=== PATIENT | female | born 1980 | race Caucasian/White ===

== ENCOUNTER 2018-02-27 18:01 | Emergency (ER) | payer BC ==
[~2018-02-27 18:01] MED LIST: IBUPROFEN 600600 M1 PO; NORCO 5-325 TA1 EACH PO
[2018-02-27] MEDS ORDERED: NORCO 5-325 TA1 EACH PO (19:04)
[2018-02-27] MEDS ORDERED: ZOFRAN ODT4 MG PO (19:15)
[2018-02-27 19:38] VITALS: BP 0/0
== END 2018-02-27 19:39 | disposition home or self-care (01) ==
LOC: ER 18:01
DX: S92.351A Displaced fracture of fifth metatarsal bone, right foot, initial encounter for closed fracture (principal); W10.9XXA Fall (on) (from) unspecified stairs and steps, initial encounter; Y93.89 Activity, other specified; Y92.89 Other specified places as the place of occurrence of the external cause; Y99.8 Other external cause status